=== PATIENT | male | born 1960 | race Caucasian/White ===

== ENCOUNTER → 2016-10-25 | Outpatient (REF) ==
[~2016-10-25] MED LIST: AMARYL4 MG PO; AMBIEN 10MG10 MG PO; CRESTOR 10MG10 MG PO; DILAUDID 2MG TAB2 MG PO; FLEXERIL 1010 MG/TAB PO; GLUCOPHAGE500 MG/TAB PO; LORTAB 10/500 51 TAB PO; NORCO 325 MG-101 TAB PO; PERCOCET 325 MG1 TAB PO; PRINIVIL10 MG PO; ZOCOR 40MG40 MG PO
[2016-10-25 19:08] LABS: THYROID STIMULATING HORMONE 1.03 uIU/mL (0.465-4.680)
[2016-10-25 19:13] LABS: PSA-TOTAL 0.19 ng/mL (0-4)
== END ==
LOC: ZLAB.WCH 18:13
PROVIDERS: Internal Medicine
DX: Z01.89 Encounter for other specified special examinations (principal)
CPT/HCPCS: G0103

== ENCOUNTER → 2017-08-11 | Outpatient (REF) | LOC: ZLAB.WCH 16:08 | DX: Z01.89 Encounter for other specified special examinations (principal) ==

== ENCOUNTER → 2018-02-20 | Outpatient (REF) ==
[2018-02-20 17:11] LABS: THYROID STIMULATING HORMONE 2.45 uIU/mL (0.465-4.680)
[2018-02-20 17:13] LABS: PSA-TOTAL 0.27 ng/mL (0-4)
== END ==
LOC: ZLAB.WCH 16:13
PROVIDERS: Internal Medicine
DX: Z01.89 Encounter for other specified special examinations (principal)
CPT/HCPCS: G0103

== ENCOUNTER 2019-03-05 15:08 | Emergency (ER) | payer MEDICARE ==
[~2019-03-05] VITALS: Ht 175.3 cm; Wt 152.3 kg
[2019-03-05 15:13] VITALS: TEMP 97.6
[2019-03-05 16:07] LABS: BASO % 0.5 % (0.0-2.0); EOS # 0.2 (0.0-0.7); EOS % 3.5 % (0-4.0); GRAN # 4.1 (1.4-6.5); HEMATOCRIT 38.5 % (42.0-52.0); HEMOGLOBIN 13.4 g/dl (13.5-18.0); LYMPH # 1.8 (1.2-3.4); MEAN CELL VOLUME 93 fl (80.0-100.0); MEAN CORPUSCULAR HEMOGLOBIN 32 pg (27.0-31.0); MEAN CORPUSCULAR HGB CONC 35 g/dl (33.0-37.0); MEAN PLATELET VOLUME 9.9 fl (7.4-10.4); MONO # 0.5 (0.1-0.6); MONO % 6.8 % (1.7-9.3); PLATELET COUNT 188 K/mm3 (130-400); RED BLOOD COUNT 4.15 M/mm3 (4.20-5.60); REDCELL DISTRIBUTION WIDTH-CV 13.1 % (11.5-14.5)
[2019-03-05 16:20] LABS: BILIRUBIN,TOTAL 0.6 mg/dL (0.0-1.0); CALCIUM 8.7 mg/dL (8.4-10.2); CREATININE, serum 1.45 (0.66-1.25); POTASSIUM 3.9 mmol/L (3.4-5.0); TOTAL PROTEIN 7.1 gm/dL (6.4-8.2)
[2019-03-05 16:25] LABS: C-REACTIVE PROTEIN 0.5 mg/dL (0.0-0.9)
[2019-03-05 17:40] LABS: COLLECTION METHOD CLEAN CATCH
[2019-03-05 18:26] LABS: MUCOUS Present /lpf; PH 5 (5-8); SQUAMOUS EPITHELIAL 0-2 /hpf; URINE APPEARANCE Hazy; URINE BACTERIA None Seen /hpf; URINE BILIRUBIN Negative (NEGATIVE); URINE BLOOD Negative (NEGATIVE); URINE COLOR Straw; URINE GLUCOSE Negative (NEGATIVE); URINE KETONE Negative (NEGATIVE); URINE LEUKOCYTE ESTERASE Negative (NEGATIVE); URINE NITRATE Negative (NEGATIVE); URINE PROTEIN(semi-quant) Negative (NEGATIVE); URINE RBC 0-2 /hpf; URINE UROBILINOGEN Negative (NEGATIVE)
[2019-03-05] MEDS ORDERED: FLEXERIL 1010 MG/TAB PO (18:38)
[2019-03-05] MEDS ORDERED: NORCO 325 MG-51 TAB PO (18:38)
[2019-03-05 19:01] VITALS: BP 135/75; PULSE 80
== END 2019-03-05 19:03 | disposition home or self-care (01) ==
LOC: COL.ER 15:08
PROVIDERS: Family Medicine
DX: R10.11 Right upper quadrant pain (principal); E11.9 Type 2 diabetes mellitus without complications; I10 Essential (primary) hypertension; Z79.84 Long term (current) use of oral hypoglycemic drugs
CPT/HCPCS: J2405; J7030; Q9967

== ENCOUNTER 2019-03-18 12:02 | Outpatient (CLI) | payer MEDICARE ==
[~2019-03-18] VITALS: Ht 175.3 cm; Wt 151.6 kg
[2019-03-18] VITALS (7 sets, daily range): BP systolic 104–137; BP diastolic 63–83; PULSE 78–97
[~2019-03-18 12:02] MED LIST changes: +COZAAR100 MG PO; +LIPITOR 40MG TA40 MG PO; +NEURONTIN300 MG/CAP PO; +NORCO 325 MG-51 TAB PO
[2019-03-18] MEDS ORDERED: VALIUM 2MG T2 MG/TAB (12:21)
--- NOTE | 2019-03-18 13:30 | NUR ---
Pt to EU 9 per cart s/p myelogram. Pt reports severe back spasms following myelogram. Dr. Santizo aware per Dana Zhong RN. Pt states he usually waits the spasms out. at bedside.
--- NOTE | 2019-03-18 15:12 | NUR ---
Pt has ambulated and dewayne PO intake s n/v. Pt reports back spasms better when up.
--- NOTE | 2019-03-18 15:15 | NUR ---
Pt discharged per w/c by nurse with .
== END 2019-03-18 15:37 | disposition home or self-care (01) ==
LOC: COL.RAD 12:02
DX: M51.14 Intervertebral disc disorders with radiculopathy, thoracic region (principal); M47.22 Other spondylosis with radiculopathy, cervical region; M48.02 Spinal stenosis, cervical region; Z98.890 Other specified postprocedural states
CPT/HCPCS: Q9967

== ENCOUNTER → 2019-04-10 | Outpatient (CLI) | payer MEDICARE ==
[~2019-04-10] MED LIST changes: +CPAP; +VALIUM 2MG T2 MG/TAB
== END ==
LOC: COL.RAD 11:19
DX: M25.78 Osteophyte, vertebrae (principal); Z98.1 Arthrodesis status

== ENCOUNTER → 2019-04-10 | Outpatient (CLI) | payer MEDICARE | LOC: MHCPAIN 10:01 | DX: G89.29 Other chronic pain (principal); M54.12 Radiculopathy, cervical region; M47.812 Spondylosis without myelopathy or radiculopathy, cervical region; R51 Headache | CPT/HCPCS: G0463 ==

== ENCOUNTER 2019-04-23 10:45 | Day surgery (SDC) | payer MEDICARE ==
[~2019-04-23] VITALS: Ht 175.3 cm; Wt 150.5 kg
[~2019-04-23 10:45] MED LIST changes: -COZAAR100 MG PO; +HYZAAR 12.5 MG-1 TAB PO
[2019-04-23] MEDS ORDERED: ZOFRAN ODT4 MG PO (11:18)
[2019-04-23 11:48] VITALS: BP 121/66; PULSE 78; TEMP 97.6
[2019-04-23 15:13] VITALS: BP 139/75; PULSE 73; TEMP 97.1
--- NOTE | 2019-04-23 15:13 | NUR ---
Patient arrives back to NVC alert, denies pain or nausea. Patient monitor applied, vitals stable. Oxygen turned off. Patient denies wanting any food. Patient given water. Patient's spouse at bedside.
[2019-04-23] MEDS ORDERED: PYRIDIUM 100MG100 MG PO (15:22)
[2019-04-23] MEDS ORDERED: NORCO 325 MG-51 TAB PO (15:23)
[2019-04-23 15:30] VITALS: BP 134/65; PULSE 66
--- NOTE | 2019-04-23 15:30 | NUR ---
Patient complains of right abdominal pain rating 7/10. Vitals stable. Will give PRN pain medication.
--- NOTE | 2019-04-23 15:35 | NUR ---
Patient given crackers and PRN pain medication at this time.
--- NOTE | 2019-04-23 15:40 | NUR ---
Patient up to the restroom at this time and is able to urinate without any difficulties. Patient is able to ambulate to and from restroom with standby assist and without any difficulties.
[2019-04-23 15:45] VITALS: BP 130/71; PULSE 70
[2019-04-23 16:00] VITALS: BP 129/67; PULSE 74
--- NOTE | 2019-04-23 16:00 | NUR ---
Patient reports pain much better and tolerable at this time. Patient states he is ready to go home. Vitals stable.
--- NOTE | 2019-04-23 16:05 | NUR ---
Dismissal instructions gone over with patient and patient's spouse. Both verbalize understanding and all questions answered.
--- NOTE | 2019-04-23 16:15 | NUR ---
Patient dismissed to visitor enterance to private vehicle that is driving via wheelchair and without any complications. Patient and spouse leave thanking staff for services.
== END 2019-04-23 16:15 | disposition home or self-care (01) ==
LOC: SDCO 10:45
DX: N20.0 Calculus of kidney (principal); M19.90 Unspecified osteoarthritis, unspecified site; E11.9 Type 2 diabetes mellitus without complications; I10 Essential (primary) hypertension; M54.9 Dorsalgia, unspecified; G89.29 Other chronic pain; Z79.84 Long term (current) use of oral hypoglycemic drugs; Z79.899 Other long term (current) drug therapy
CPT/HCPCS: C1769; C2617; J0690; J1100; J1940; J2405; J2704; J3010; J7030

== ENCOUNTER 2019-07-03 05:30 | Observation (INO) | payer MEDICARE ==
[~2019-07-03] VITALS: Ht 175.3 cm; Wt 112.5 kg
[2019-07-03] VITALS (8 sets, daily range): BP systolic 135–154; BP diastolic 60–79; PULSE 70–88; TEMP 97.5–98.1
[~2019-07-03 05:30] MED LIST changes: +PYRIDIUM 100MG100 MG PO; +ZOFRAN ODT4 MG PO
[2019-07-03] MEDS ORDERED: COZAAR 25MG25 MG/TAB PO (05:42)
[2019-07-03 06:17] LABS: BASO % 0.6 % (0.0-2.0); EOS # 0.2 (0.0-0.7); EOS % 2.5 % (0-4.0); GRAN # 4.9 (1.4-6.5); GRAN % 72.2 % (42.2-75.2); HEMATOCRIT 38.9 % (42.0-52.0); HEMOGLOBIN 13.5 g/dl (13.5-18.0); LYMPH # 1.3 (1.2-3.4); LYMPH % 18.9 % (20.0-51.0); MEAN CELL VOLUME 94 fl (80.0-100.0); MEAN CORPUSCULAR HEMOGLOBIN 33 pg (27.0-31.0); MEAN CORPUSCULAR HGB CONC 35 g/dl (33.0-37.0); MEAN PLATELET VOLUME 10.2 fl (7.4-10.4); MONO # 0.4 (0.1-0.6); MONO % 5.5 % (1.7-9.3); PLATELET COUNT 178 K/mm3 (130-400); RED BLOOD COUNT 4.15 M/mm3 (4.20-5.60); REDCELL DISTRIBUTION WIDTH-CV 13.4 % (11.5-14.5)
[2019-07-03 06:27] LABS: ALBUMIN 4.3 gm/dL (3.5-5.0); BILIRUBIN,TOTAL 0.8 mg/dL (0.0-1.0); CALCIUM 8.7 mg/dL (8.4-10.2); CREATININE, serum 1.56 (0.66-1.25); TOTAL PROTEIN 7.5 gm/dL (6.4-8.2)
--- NOTE | 2019-07-03 08:27 | NUR ---
SRUTHI Bardales with Urology here to see patient.
--- NOTE | 2019-07-03 09:34 | NUR ---
SW met with the patient to discuss discharge plan. The patient lives in [place] with his , Ida (ph#[phone]). He reports independence with ADLs and does not have any DME. The patient's PCP is Dr. Viral Mckoy and he receives his medications at [facility]. He reports no difficulties obtaining his meds. The patient's DPOA-HC is in EMR and it designates his . The patient plans to return home with his upon discharge. No additional needs at this time.
--- NOTE | 2019-07-03 10:48 | NUR ---
Dr Nguyễn here to see patient.
--- NOTE | 2019-07-03 12:48 | NUR ---
Initial visit; Patient thanked Emanations Analysis Technician for looking in on him and offering God's blessings and a successful surgical procedure.
--- NOTE | 2019-07-03 16:25 | NUR ---
Patient to surgery at this time.
--- NOTE | 2019-07-03 19:15 | NUR ---
Patient voids 200cc of alphonso urine. Ready to go home. DC'd IV site from left hand, angiocath intact.
--- NOTE | 2019-07-03 19:30 | NUR ---
Reviewed discharge instructions with patient. Verbalized understanding. RX for Dukedom and Pyridium sent with patient.
--- NOTE | 2019-07-03 19:40 | NUR ---
Escorted patient via w/c to private car. Personal belongings and discharge instructions sent with patient.
== END 2019-07-03 19:40 | disposition home or self-care (01) ==
LOC: COL.ER 05:30 → SURG 07:05
PROVIDERS: Emergency Medicine; ADMIT Urology
DX: N20.1 Calculus of ureter (principal); I10 Essential (primary) hypertension; M19.90 Unspecified osteoarthritis, unspecified site; E11.9 Type 2 diabetes mellitus without complications; Z99.89 Dependence on other enabling machines and devices; Z79.84 Long term (current) use of oral hypoglycemic drugs; Z79.899 Other long term (current) drug therapy; Z79.891 Long term (current) use of opiate analgesic
CPT/HCPCS: C1769; C2617; J0690; J1170; J1885; J2405; J2704; J3010; J7030; Q9967

== ENCOUNTER → 2019-07-25 | Outpatient (CLI) | payer MEDICARE ==
[~2019-07-25] MED LIST changes: +COZAAR 25MG25 MG/TAB PO
== END ==
LOC: COL.RAD 10:10
DX: N20.0 Calculus of kidney (principal); E21.2 Other hyperparathyroidism
CPT/HCPCS: A9500

== ENCOUNTER 2019-10-19 00:19 | Emergency (ER) | payer MEDICARE ==
[~2019-10-19] VITALS: Ht 177.8 cm; Wt 146.8 kg
[2019-10-19 02:05] VITALS: BP 144/79; PULSE 84; TEMP 97.8
== END 2019-10-19 02:05 | disposition home or self-care (01) ==
LOC: COL.ER 00:19
DX: S09.90XA Unspecified injury of head, initial encounter (principal); S83.91XA Sprain of unspecified site of right knee, initial encounter; S16.1XXA Strain of muscle, fascia and tendon at neck level, initial encounter; S00.33XA Contusion of nose, initial encounter; F17.290 Nicotine dependence, other tobacco product, uncomplicated; R40.2412 Glasgow coma scale score 13-15, at arrival to emergency department; Z79.84 Long term (current) use of oral hypoglycemic drugs; W01.0XXA Fall on same level from slipping, tripping and stumbling without subsequent striking against object, initial encounter

== ENCOUNTER 2020-01-10 09:39 | Emergency (ER) | payer MEDICARE ==
[~2020-01-10] VITALS: Ht 175.3 cm; Wt 144.5 kg
[2020-01-10 10:05] VITALS: TEMP 99
[2020-01-10 10:43] LABS: BASO % 0.4 % (0.0-2.0); EOS # 0.1 (0.0-0.7); EOS % 1.6 % (0-4.0); GRAN # 3.2 (1.4-6.5); GRAN % 65.2 % (42.2-75.2); HEMATOCRIT 39.5 % (42.0-52.0); HEMOGLOBIN 13.7 g/dl (13.5-18.0); LYMPH # 0.7 (1.2-3.4); LYMPH % 15.1 % (20.0-51.0); MEAN CELL VOLUME 95 fl (80.0-100.0); MEAN CORPUSCULAR HEMOGLOBIN 33 pg (27.0-31.0); MEAN CORPUSCULAR HGB CONC 35 g/dl (33.0-37.0); MEAN PLATELET VOLUME 9.8 fl (7.4-10.4); MONO # 0.9 (0.1-0.6); MONO % 17.5 % (1.7-9.3); PLATELET COUNT 163 K/mm3 (130-400); RED BLOOD COUNT 4.15 M/mm3 (4.20-5.60); REDCELL DISTRIBUTION WIDTH-CV 13.4 % (11.5-14.5)
[2020-01-10 10:58] LABS: ALBUMIN 4.5 gm/dL (3.5-5.0); BILIRUBIN,TOTAL 0.9 mg/dL (0.0-1.0); C-REACTIVE PROTEIN 2.8 mg/dL (0.0-0.9); CALCIUM 9.2 mg/dL (8.4-10.2); CREATININE, serum 1.34 (0.66-1.25); POTASSIUM 4.1 mmol/L (3.4-5.0)
[2020-01-10 12:25] VITALS: BP 120/96; PULSE 84
== END 2020-01-10 12:36 | disposition home or self-care (01) ==
LOC: COL.ER 09:39
PROVIDERS: Nurse Practitioner
DX: R05 Cough (principal); R51 Headache; E11.9 Type 2 diabetes mellitus without complications; I10 Essential (primary) hypertension; U07.1 COVID-19; Z79.84 Long term (current) use of oral hypoglycemic drugs
CPT/HCPCS: J1885; J7030

== ENCOUNTER 2021-05-20 13:00 | Outpatient (RCR) | payer MEDICARE | END 2021-05-21 | disposition home or self-care (01) | LOC: WSPT | DX: M70.61 Trochanteric bursitis, right hip (principal); M54.2 Cervicalgia ==

== ENCOUNTER → 2021-07-19 | Outpatient (RCR) | payer MEDICARE | END | disposition home or self-care (01) | LOC: WSPT | DX: M70.61 Trochanteric bursitis, right hip (principal) ==

== ENCOUNTER 2021-07-26 13:30 | Outpatient (RCR) | payer MEDICARE | END 2021-08-09 11:01 | disposition home or self-care (01) | LOC: WSPT 13:30 | DX: M70.61 Trochanteric bursitis, right hip (principal) ==

== ENCOUNTER 2021-09-15 13:30 | Outpatient (RCR) | payer MEDICARE | END 2021-09-18 | disposition home or self-care (01) | LOC: WSPT | DX: M47.816 Spondylosis without myelopathy or radiculopathy, lumbar region (principal) ==

== ENCOUNTER 2021-10-07 08:15 | Outpatient (RCR) | payer MEDICARE | END 2021-10-19 | disposition still patient (30) | LOC: WSPT | DX: M19.90 Unspecified osteoarthritis, unspecified site (principal); S39.012A Strain of muscle, fascia and tendon of lower back, initial encounter ==

== ENCOUNTER 2022-06-24 09:06 | Outpatient (RCR) | payer MEDICARE | END 2022-06-24 09:11 | disposition home or self-care (01) | LOC: WSPT 09:06 | DX: M47.816 Spondylosis without myelopathy or radiculopathy, lumbar region (principal); M48.56XA Collapsed vertebra, not elsewhere classified, lumbar region, initial encounter for fracture ==

== ENCOUNTER 2022-06-29 15:56 | Inpatient (IN) | payer MEDICARE ==
[~2022-06-29] VITALS: Ht 175.3 cm; Wt 138.3 kg
[2022-07-13] VITALS (16 sets, daily range): BP systolic 131–175; BP diastolic 63–81; PULSE 66–87; TEMP 97.9–98.6
[2022-07-13] MEDS ORDERED: COZAAR100 MG PO (06:57)
--- NOTE | 2022-07-13 11:35 | NUR ---
Pt arrives to room 347 via bed. Is Ox4 but very drowsy. VSS, maintains sats >95% on 2L O2 via NC. IV to LH intact with LR infusing per PACU orders. Pt reports generalized abdominal pain 8/10 and continued nausea. Lap site x 5 with bandaids CDI. ELA drain to L abdomen. Bulb compressed, sm amount serosanguenous drainage noted to bulb. Redmond catheter in place with tea colored urine to dependant drainage. Pt at bedside.
--- NOTE | 2022-07-13 15:00 | NUR ---
Pt is awake and alert upon staff entering room. Assist pt to stand at bedside. Tolerates movement well. Pt ambulates, with mod assist of 2, around bed to sitting position in recliner. Denies feeling dizzy or lightheaded. Pt continues to c/o increased abdominal pain. Reporting 8/10 pain to abdomen, body language does not support this. Remind pt of MACHINE STOPPAGE FREQUENCY CHECKER pump and encourage him to keep pain controlled with that. Denies any nausea at this time.
--- NOTE | 2022-07-13 20:43 | NUR ---
Patient A/O, head to toe assessment done, see shift assessment, rates his pain at 7/10, with CORPORATE QUALITY MANAGER pump, with 5 lap sites CDI bandaids, maintained on NPO, with IV infusing well on left hand, denies further needs, call light and personal items within reach, will continue to monitor.
[2022-07-14] VITALS (10 sets, daily range): BP systolic 135–156; BP diastolic 67–79; PULSE 57–98; TEMP 97.5–98.5
--- NOTE | 2022-07-14 01:15 | NUR ---
Called Dr. Heart and made him aware that patient's respirations as per SUPERVISOR PATCHING pump went down to 6-7 cpm then back up to 13-14 cpm. This nurse counted the respirations and it was 14cpm. Dr. Heart ordered to discontinue the basal rate.
--- NOTE | 2022-07-14 06:34 | NUR ---
Patient slept for the most part, pain well controlled, NPO maintained, will have a swallow study this morning, will report off to dayshift nurse.
[2022-07-14 06:49] LABS: BASO % 0.1 % (0.0-2.0); GRAN # 6.9 K/mm3 (1.4-6.5); HEMOGLOBIN 12.2 g/dl (13.5-18.0); LYMPH # 1.1 K/mm3 (1.2-3.4); LYMPH % 12.1 % (20.0-51.0); MEAN CELL VOLUME 97 fl (80.0-100.0); MEAN CORPUSCULAR HEMOGLOBIN 32 pg (27-31); MEAN CORPUSCULAR HGB CONC 33 g/dl (33.0-37.0); MEAN PLATELET VOLUME 10.4 fl (7.4-10.4); MONO # 0.7 K/mm3 (0.1-0.6); MONO % 8.5 % (1.7-9.3); PLATELET COUNT 190 K/mm3 (130-400); RED BLOOD COUNT 3.78 M/mm3 (4.20-5.60); REDCELL DISTRIBUTION WIDTH-CV 13.6 % (11.5-14.5)
[2022-07-14 06:56] LABS: HEMATOCRIT 36.6 % (42.0-52.0)
[2022-07-14 07:12] LABS: ALBUMIN 3.4 gm/dL (3.4-4.8); BILIRUBIN,TOTAL 0.7 mg/dL (0.2-1.2); CALCIUM 8.5 mg/dL (8.4-10.2); CREATININE, serum 1.39 mg/dL (0.72-1.25); POTASSIUM 4.6 mmol/L (3.5-4.5); TOTAL PROTEIN 6.2 gm/dL (6.2-8.1)
--- NOTE | 2022-07-14 08:02 | NUR ---
Report received from FREDY Valdez; patient currently resting comfortably in bed; patient has D5 1/2 NS with 20 KCl running through a peripheral line. Patient is on a ACCESS CONTROL OFFICER pump with Dilaudid; patient has Redmond catheter in place and a left lateral ELA drain. No other lines or tubes are in place.
--- NOTE | 2022-07-14 10:51 | NUR ---
Patient was admitted to the Surgical Unit on 07-13-22. Knurling Machine Operator met with Patient at bedside to conduct Care Managment intake and discuss discharge planning. Patient verrified that he lives in [place], [place]. His PCP is Dr. Mckoy, and insurance is Medicare. PAtient denies that use of O2 and DME at home. Patient identifies his , Ida as his familial point of contact P: [phone]. Patient requested AD paperwork and AD paperwork was provided by this SW. SW contacted Ida to initiate contact for familial calaboration and coordination. Ida reported that she has no concerns at this time, but does not have the full picture of treatment and discharge needs. Ida reported that she will be on site on this day and will communicate with nursing staff about her concerns.
--- NOTE | 2022-07-14 11:34 | NUR ---
Initial visit: Pt was resting and content. Pt has no needs right now. Crew Truck Driver will follow up as needed.
--- NOTE | 2022-07-14 19:00 | NUR ---
RECEIVED CHANGE OF SHIFT REPORT FROM DAY SHIFT RN.
--- NOTE | 2022-07-14 21:58 | NUR ---
REFUSED OFFER TO WALK IN HALLS AT THIS TIME.
[2022-07-15] VITALS (8 sets, daily range): BP systolic 110–149; BP diastolic 62–94; PULSE 67–87; TEMP 97.3–98.5
[2022-07-15 06:38] LABS: BASO % 0.5 % (0.0-2.0); EOS # 0.1 K/mm3 (0.0-0.7); EOS % 1.5 % (0.0-4.0); GRAN # 4.5 K/mm3 (1.4-6.5); HEMOGLOBIN 12.1 g/dl (13.5-18.0); LYMPH # 1.4 K/mm3 (1.2-3.4); LYMPH % 20.8 % (20.0-51.0); MEAN CELL VOLUME 96 fl (80.0-100.0); MEAN CORPUSCULAR HEMOGLOBIN 32 pg (27-31); MEAN CORPUSCULAR HGB CONC 34 g/dl (33.0-37.0); MEAN PLATELET VOLUME 10.7 fl (7.4-10.4); MONO # 0.5 K/mm3 (0.1-0.6); MONO % 7.9 % (1.7-9.3); PLATELET COUNT 153 K/mm3 (130-400); RED BLOOD COUNT 3.77 M/mm3 (4.20-5.60); REDCELL DISTRIBUTION WIDTH-CV 13.9 % (11.5-14.5)
[2022-07-15 06:59] LABS: CALCIUM 8.2 mg/dL (8.4-10.2); CREATININE, serum 1.26 mg/dL (0.72-1.25); POTASSIUM 4.4 mmol/L (3.5-4.5)
--- NOTE | 2022-07-15 07:07 | NUR ---
CHANGE OF SHIFT REPORT GIVEN TO DAY SHIFT RNCHRISTIN. IVF AND INTERNATIONAL LOGISTICS COORDINATOR CONTINUES, ENCOURAGED TO WALK MORE, PATIENT REFUSED TO GET UP TO CHAIR AT THIS TIME. O2 CONTINUES WHEN PATIENT IS SLEEPING SINCE PATIENT IS UNABLE TO WEAR CPAP WHILE USING INTERNATIONAL LOGISTICS COORDINATOR.
--- NOTE | 2022-07-15 08:08 | NUR ---
Pt was sleeping during shift change. Woke pt for morning vital signs and respiratory therapy. Pt was on O2 through the night as he usually uses a CPAP but was able to due to the SAW TAILER. O2 removed at this time. Assisted pt the restroom and then ambulated in the halls. Pt did use a walker and stated that his has one at home he can use. Pts gait is unsteady and he did report that he does fall at home. Encouraged him to use the walker at all times due to the unsteady gait.
--- NOTE | 2022-07-15 11:00 | NUR ---
Pt continues to do well. Using call light when he needs to use the restroom. Pt continues to sit up in the chair, pain controlled with GROUND WOOD SUPERVISOR. Pt continues to refuse anything to eat/drink other than water. Marketing Communications Manager has been in to see him. No other needs, will continue to monitor
--- NOTE | 2022-07-15 12:30 | NUR ---
ELECTRIC POWER SUPERINTENDENT discontinued per order and oral pain medication given. Pt denies any needs, call light within reach
--- NOTE | 2022-07-15 15:43 | NUR ---
Office Nurse and KYLER Yao met with Patient to wittness Patient signing Advanced Directives. This action was completed. This SW placed a copy of the signed advanced directives in Patient's chart and provided the Patient with the original.
--- NOTE | 2022-07-15 18:30 | NUR ---
REPORT RCVD FROM FREDY WALLER. THE PATIENT IS SITTING UP IN CHAIR AT THIS TIME. ELA DRAIN IN PLACE MINIMAL DRAINAGE AT INSERTION SITE, FREDY WALLER STATES THAT THE BLOOD ON THE DRESSING IS THE SAME PRIOR ASSESSMENT. ELA DRAIN IS DRAINING SEROSANGUINOUS DRAINAGE. THE PATIENT HAS ASKED TO GET UP AND WALK, WILL HAVE AIDE WALK WITH HIM AFTER FIRST PATIENT ROUNDS. NO OTHER CONCERNS AT THIS TIME.
[2022-07-16 03:12] VITALS: BP 135/63; PULSE 74; TEMP 98.6
[2022-07-16 08:00] VITALS: BP 143/61; PULSE 72; TEMP 98
--- NOTE | 2022-07-16 09:00 | NUR ---
Pt. sitting up in chair. Pt. is A&OX3, assessment complete. INT to rt. hand patent. ELA noted and drained at this time See chart. Dr. collins in to see pt. and discontinued the ELA drain. Gauze and tape applied to site. Pt. denies pain or other needs, call light within reach.
[2022-07-16] MEDS ORDERED: ZOFRAN 4MG T4 MG/TAB PO (09:21)
[2022-07-16] MEDS ORDERED: NORCO 325 MG-101 TAB PO (09:22)
[2022-07-16] MEDS ORDERED: PRILOSEC 20MG20 MG PO (09:22)
--- NOTE | 2022-07-16 10:20 | NUR ---
Pt. has met discharge criteria. INT to rt. hand discontinued. Pt. given and reviewed discharge paperwork. Pt. voices understanding. Pt. escorted out by DIRECTOR CHILD ABUSE THERAPY.
== END 2022-07-16 10:20 | disposition home or self-care (01) | DRG 621 ==
LOC: INPTSU 07-13 05:39 → SDCO 07-13 07:30 → EDSTATUS 07-13 07:30 → SURG 07-13 07:30
PROVIDERS: ADMIT Surgery
PROC: 8E0W4CZ Robotic Assisted Procedure of Trunk Region, Percutaneous Endoscopic Approach (ICD-10-PCS; 2022-07-13)
PROC: 0D164ZA Bypass Stomach to Jejunum, Percutaneous Endoscopic Approach (ICD-10-PCS; principal; 2022-07-13 07:30)
DX: E66.01 Morbid (severe) obesity due to excess calories (principal); E11.9 Type 2 diabetes mellitus without complications; G89.29 Other chronic pain; M54.2 Cervicalgia; M54.9 Dorsalgia, unspecified; M25.519 Pain in unspecified shoulder; I10 Essential (primary) hypertension; M19.90 Unspecified osteoarthritis, unspecified site; M25.569 Pain in unspecified knee; I49.3 Ventricular premature depolarization; M54.12 Radiculopathy, cervical region; G47.33 Obstructive sleep apnea (adult) (pediatric); E78.5 Hyperlipidemia, unspecified; M10.9 Gout, unspecified; Z68.42 Body mass index [BMI] 45.0-49.9, adult; Z86.16 Personal history of COVID-19; Z79.84 Long term (current) use of oral hypoglycemic drugs; Z87.442 Personal history of urinary calculi; I25.2 Old myocardial infarction; Z79.891 Long term (current) use of opiate analgesic
CPT/HCPCS: A4314; A9284; C9113; J0330; J0690; J1100; J1170; J1650; J1815; J1956; J2405; J2550; J2704; J2765; J3010; J3480; J7120

== ENCOUNTER 2022-09-14 08:06 | Outpatient (RCR) | payer MEDICARE ==
[~2022-09-14 08:06] MED LIST changes: +CARAFATE 1GM1 G PO; +CENTRUM MEN'S PO; +COZAAR100 MG PO; +PRILOSEC 20MG20 MG PO; +REGLAN 5MG T5 MG/TAB PO; +ULORIC40 MG PO; +ZOFRAN 4MG T4 MG/TAB PO
== END 2022-09-18 | disposition home or self-care (01) ==
LOC: WSPT
DX: M54.6 Pain in thoracic spine (principal); R53.1 Weakness

== ENCOUNTER 2023-03-24 07:01 | Emergency (ER) | payer MEDICARE ==
[~2023-03-24] VITALS: Ht 175.3 cm; Wt 98.2 kg
[~2023-03-24 07:01] MED LIST changes: +BENTYL 20MG20 MG/TAB PO; +LEVAQUIN 750MG750 M1 PO; +PROZAC 10MG10 MG PO; +REGLAN 10MG10 MG/TAB PO
[2023-03-24 08:42] LABS: CALCIUM 8.8 mg/dL (8.4-10.2); CREATININE, serum 1.16 mg/dL (0.72-1.25); POTASSIUM 4.5 mmol/L (3.5-4.5)
[2023-03-24] MEDS ORDERED: SALONPAS1 EACH TP (08:57)
[2023-03-24 09:49] VITALS: BP 117/75; PULSE 63; TEMP 97.8
== END 2023-03-24 09:51 | disposition home or self-care (01) ==
LOC: COL.ER 07:01
PROVIDERS: Emergency Medicine
DX: M54.50 Low back pain, unspecified (principal); M54.2 Cervicalgia; M25.552 Pain in left hip; R07.81 Pleurodynia; G89.29 Other chronic pain; Z79.1 Long term (current) use of non-steroidal anti-inflammatories (NSAID); Z98.890 Other specified postprocedural states; X50.1XXA Overexertion from prolonged static or awkward postures, initial encounter; W18.30XA Fall on same level, unspecified, initial encounter; W22.8XXA Striking against or struck by other objects, initial encounter